=== PATIENT | female | born 2005 | race African-American/Black ===

== ENCOUNTER 2023-10-24 19:38 | Emergency (ER) | payer MEDICAID ==
[~2023-10-24] VITALS: Ht 170.2 cm; Wt 54.6 kg
[2023-10-24 20:15] VITALS: BP 108/68; O2SAT 99
[2023-10-25 00:57] VITALS: PULSE 85; RESP 18; TEMP 98.3
== END 2023-10-25 00:58 | disposition home or self-care (01) ==
LOC: ER 19:38
DX: S61.012A Laceration without foreign body of left thumb without damage to nail, initial encounter (principal); W45.8XXA Other foreign body or object entering through skin, initial encounter; Y93.89 Activity, other specified; Y92.89 Other specified places as the place of occurrence of the external cause; Y99.8 Other external cause status
CPT/HCPCS: 12001; 73130; 81025; 99283

== ENCOUNTER 2024-12-23 08:41 | Emergency (ER) | payer MEDICAID ==
[~2024-12-23] VITALS: Ht 172.7 cm; Wt 58.1 kg
[2024-12-23 08:42] VITALS: TEMP 37.1; O2SAT 99
[2024-12-23 09:15] VITALS: PULSE 84; RESP 20
[2024-12-23] MEDS: ALBUTEROL (0.083%) 2.5MG/3ML NEB HHN STA (09:15)
[2024-12-23] MEDS: IPRATROPIUM BROMIDE (0.02%) 0.5MG/2.5ML NEB HHN STA (09:15)
[2024-12-23] MEDS: PREDNISONE 20MG TABLET PO STA (09:43)
[2024-12-23] MEDS ORDERED: P20 MT (09:50)
[2024-12-23] MEDS ORDERED: ALBU90AE INH (09:50)
[2024-12-23 11:36] VITALS: BP 128/79; PULSE 86; RESP 19; O2SAT 100
== END 2024-12-23 11:37 | disposition home or self-care (01) ==
LOC: ER 08:41
DX: J45.901 Unspecified asthma with (acute) exacerbation (principal); F17.200 Nicotine dependence, unspecified, uncomplicated; F12.90 Cannabis use, unspecified, uncomplicated
CPT/HCPCS: 94640; 94070; 99283; 99406; J7512; Z7610 ×3